=== PATIENT | female | born 1960 | race Caucasian/White ===

== ENCOUNTER 2021-11-18 05:23 | Inpatient (IN) ==
[2021-11-18] MEDS ORDERED: methylPREDNISolone 125 MG/2 ML VIAL IVP ONE (05:50)
[2021-11-18] MEDS ORDERED: Isovue-370 500 ML BOTTLE IVP ONE (06:15)
[2021-11-18 06:30] LABS: Basophils % 0.5 %; Eosinophils # 0.1 K/mcL (0.0-0.6); Eosinophils % 0.6 %; Hematocrit 41.2 % (35.3-44.9); Hemoglobin 13.7 g/dL (11.5-15.4); Immature Granulocytes % 0.4 % (0-4); Lymphocytes # 1.8 K/mcL (0.6-4.6); Lymphocytes % 21.9 %; Mean Corpuscular HGB Conc 33.3 g/dL (31.6-35.5); Mean Corpuscular Hemoglobin 26.5 pg (28.0-33.3); Mean Corpuscular Volume 79.7 fL (83.0-100.0); Mean Platelet Volume 9.8 fL (9.4-12.4); Monocytes # 0.7 K/mcL (0.0-1.3); Monocytes % 8.4 %; Neutrophils # 5.5 K/mcL (1.6-8.9); Platelet Count 220 K/mcL (140-400); Red Blood Count 5.17 M/mcL (3.82-4.97); Red Cell Distribution Width 15.9 % (11.5-14.5); Segmented Neutrophils % 68.2 %; White Blood Count 8.1 K/mcL (4.3-11.1)
[2021-11-18 06:33] LABS: Alanine Aminotransferase 7 Units/L (7-52); Albumin 3.7 g/dL (3.5-5.7); Albumin/Globulin Ratio 1.2 (1.1-2.2); Alkaline Phosphatase 102 Units/L (34-104); Aspartate Amino Transferase 12 Units/L (13-39); BUN/Creatinine Ratio 25 (6-26); Bilirubin,Total 0.3 mg/dL (0.3-1.0); Blood Urea Nitrogen 27 mg/dL (8-23); Calcium 8.9 mg/dL (8.6-10.3); Carbon Dioxide 26 mEq/L (23-29); Chloride 100 mEq/L (98-107); Globulin 3.2 g/dL (2.4-3.5); Glucose 100 mg/dL (70-105); Osmolality,Calculated 285 (280-300); Potassium 3.3 mEq/L (3.5-5.1); Sodium 135 mEq/L (136-145); Total Protein 6.9 g/dL (6.4-8.9); eGFR For African Americans > 60 (> 60); eGFR For Non-African Americans 52 (> 60)
[2021-11-18 07:03] LABS: Adenovirus Not Detected (Not Detect); Bordetella Pertussis Not Detected (Not Detect); Chlamydophila pneumoniae Not Detected (Not Detect); Coronavirus 229E Not Detected (Not Detect); Coronavirus HKU1 Not Detected (Not Detect); Coronavirus NL63 Not Detected (Not Detect); Coronavirus OC43 Not Detected (Not Detect); Human Metapneumovirus Not Detected (Not Detect); Human Rhinovirus/Enterovirus Not Detected (Not Detect); Influenza A Subtype 2009 H1 Not Detected (Not Detect); Influenza B Not Detected (Not Detect); Mycoplasma pneumoniae Not Detected (Not Detect); Parainfluenza Virus 1 Not Detected (Not Detect); Parainfluenza Virus 2 Not Detected (Not Detect); Parainfluenza Virus 3 Not Detected (Not Detect); Parainfluenza Virus 4 Not Detected (Not Detect); Respiratory Syncytial Virus Not Detected (Not Detect); SARS-CoV-2 Not Detected (Not Detect)
[2021-11-18] MEDS ORDERED: Ampicillin/Sulbactam 3,000 MG in 0.9 % Sodium Chloride Mini Bag 100 ML IVPB ONE (07:24)
[2021-11-18] MEDS: Racepinephrine Neb 0.5 ML VIAL IH ONE ×2 (08:36→08:40)
[2021-11-18] MEDS ORDERED: Acetaminophen 325 MG TABLET PO PRN (10:52)
[2021-11-18] MEDS ORDERED: Albuterol 2.5 MG/3 ML NEBULIZER IH PRN (10:52)
[2021-11-18] MEDS ORDERED: Naloxone 0.4 MG/ML INJ IVP PRN (10:52)
[2021-11-18] MEDS ORDERED: Racepinephrine Neb 0.5 ML VIAL IH PRN (10:52)
[2021-11-18] MEDS ORDERED: Acetaminophen/Aspirin/Caffeine TABLET PO PRN (11:00)
[2021-11-18] MEDS ORDERED: NON-FORMULARY MEDICATION 1 EACH EACH (Epinephrine 0.3 MG/0.3 ML Auto.Injct) IM PRN (11:00)
[2021-11-18] MEDS: Famotidine 20 MG/2 ML VIAL IVP SCH ×2 (11:48→18:46)
[2021-11-18] MEDS ORDERED: Benzocaine 20% 12 APPL GEL..GRAM. TP PRN (11:52)
[2021-11-18] MEDS: Ampicillin/Sulbactam 3,000 MG in 0.9 % Sodium Chloride Mini Bag 100 ML IVPB SCH ×2 (13:19→18:48)
[2021-11-18 13:23] LABS: INR 1.2; Prothrombin Time 13.1 Seconds (9.4-12.1)
[2021-11-18] MEDS: Ipratropium/Albuterol Neb 3 ML IH SCH ×2 (15:40→20:00)
[2021-11-18] MEDS: methylPREDNISolone 125 MG/2 ML VIAL IVP SCH (18:47)
[2021-11-18] MEDS: *HR* Heparin 5,000 UNIT/ML VIAL SQ SCH (18:48)
[2021-11-18 20:07] LABS: Bilirubin,Urine Negative (Negative); Blood,Urine Negative (Negative); Clarity,Urine Clear (Clear); Color,Urine Colorless (Yellow); Glucose,Urine (UA) Normal (Normal); Ketones,Urine Negative (Negative); Leukocyte Esterase,Urine Negative (Negative); Nitrite,Urine Negative (Negative); Protein,Urine Negative (Neg-Trace); Specific Gravity,Urine 1.023 (1.010-1.025); Urobilinogen,Urine Normal (Normal)
[2021-11-18] MEDS ORDERED: Chloraseptic Spray 177 ML BOTTLE MM PRN (21:19)
[2021-11-19] MEDS: Ampicillin/Sulbactam 3,000 MG in 0.9 % Sodium Chloride Mini Bag 100 ML IVPB SCH ×5 (01:45→23:58)
[2021-11-19 01:55] LABS: Basophils % 0.1 %; Hematocrit 38.6 % (35.3-44.9); Hemoglobin 12.7 g/dL (11.5-15.4); Immature Granulocytes % 0.4 % (0-4); Lymphocytes # 0.9 K/mcL (0.6-4.6); Lymphocytes % 11.6 %; Mean Corpuscular HGB Conc 32.9 g/dL (31.6-35.5); Mean Corpuscular Hemoglobin 26.5 pg (28.0-33.3); Mean Corpuscular Volume 80.4 fL (83.0-100.0); Mean Platelet Volume 9.9 fL (9.4-12.4); Monocytes # 0.3 K/mcL (0.0-1.3); Monocytes % 4.1 %; Neutrophils # 6.8 K/mcL (1.6-8.9); Platelet Count 202 K/mcL (140-400); Red Cell Distribution Width 15.8 % (11.5-14.5); Segmented Neutrophils % 83.8 %; White Blood Count 8.1 K/mcL (4.3-11.1)
[2021-11-19 04:07] LABS: Alanine Aminotransferase 6 Units/L (7-52); Albumin 3.6 g/dL (3.5-5.7); Albumin/Globulin Ratio 1.2 (1.1-2.2); Alkaline Phosphatase 68 Units/L (34-104); Aspartate Amino Transferase 12 Units/L (13-39); BUN/Creatinine Ratio 21 (6-26); Bilirubin,Direct 0.1 mg/dL (0.0-0.2); Bilirubin,Indirect 0.4 mg/dL (0.0-1.0); Bilirubin,Total 0.5 mg/dL (0.3-1.0); Blood Urea Nitrogen 17 mg/dL (8-23); Carbon Dioxide 26 mEq/L (23-29); Chloride 101 mEq/L (98-107); Globulin 3.1 g/dL (2.4-3.5); Glucose 120 mg/dL (70-105); Magnesium 1.9 mg/dL (1.6-2.6); Osmolality,Calculated 285 (280-300); Phosphorous 3.2 mg/dL (2.7-4.5); Potassium 3.6 mEq/L (3.5-5.1); Sodium 136 mEq/L (136-145); Total Protein 6.7 g/dL (6.4-8.9); eGFR For African Americans > 60 (> 60); eGFR For Non-African Americans > 60 (> 60)
[2021-11-19] MEDS: Ipratropium/Albuterol Neb 3 ML IH SCH ×4 (04:41→22:19)
[2021-11-19] MEDS: methylPREDNISolone 125 MG/2 ML VIAL IVP SCH ×2 (06:04→17:48)
[2021-11-19] MEDS: *HR* Heparin 5,000 UNIT/ML VIAL SQ SCH ×2 (06:05→17:48)
[2021-11-19] MEDS: Famotidine 20 MG/2 ML VIAL IVP SCH ×2 (06:06→17:48)
[2021-11-19] MEDS ORDERED: Racepinephrine Neb 0.5 ML VIAL IH PRN (10:59)
[2021-11-19] MEDS ORDERED: Chloraseptic Spray 177 ML BOTTLE MM PRN (10:59)
[2021-11-19] MEDS ORDERED: Acetaminophen 325 MG TABLET PO PRN (10:59)
[2021-11-19] MEDS ORDERED: Naloxone 0.4 MG/ML INJ IVP PRN (10:59)
[2021-11-19] MEDS ORDERED: Benzocaine 20% 12 APPL GEL..GRAM. TP PRN (10:59)
[2021-11-19] MEDS ORDERED: Acetaminophen/Aspirin/Caffeine TABLET PO PRN (10:59)
[2021-11-19] MEDS ORDERED: Albuterol 2.5 MG/3 ML NEBULIZER IH PRN (10:59)
[2021-11-20] MEDS: Ipratropium/Albuterol Neb 3 ML IH SCH ×3 (03:51→10:46)
[2021-11-20] MEDS: Ampicillin/Sulbactam 3,000 MG in 0.9 % Sodium Chloride Mini Bag 100 ML IVPB SCH ×4 (05:48→23:24)
[2021-11-20] MEDS: methylPREDNISolone 125 MG/2 ML VIAL IVP SCH ×2 (05:49→17:10)
[2021-11-20] MEDS: *HR* Heparin 5,000 UNIT/ML VIAL SQ SCH ×2 (05:50→17:10)
[2021-11-20] MEDS: Famotidine 20 MG/2 ML VIAL IVP SCH (05:51)
[2021-11-20 07:09] LABS: Basophils % 0.1 %; Hematocrit 38.4 % (35.3-44.9); Hemoglobin 12.7 g/dL (11.5-15.4); Immature Granulocytes % 1.6 % (0-4); Lymphocytes # 1.4 K/mcL (0.6-4.6); Lymphocytes % 16.8 %; Mean Corpuscular HGB Conc 33.1 g/dL (31.6-35.5); Mean Corpuscular Hemoglobin 26.8 pg (28.0-33.3); Mean Platelet Volume 9.9 fL (9.4-12.4); Monocytes # 0.5 K/mcL (0.0-1.3); Monocytes % 5.9 %; Neutrophils # 6.2 K/mcL (1.6-8.9); Platelet Count 198 K/mcL (140-400); Red Blood Count 4.74 M/mcL (3.82-4.97); Red Cell Distribution Width 15.8 % (11.5-14.5); Segmented Neutrophils % 75.6 %; White Blood Count 8.2 K/mcL (4.3-11.1)
[2021-11-20 07:26] LABS: BUN/Creatinine Ratio 19 (6-26); Blood Urea Nitrogen 20 mg/dL (8-23); Calcium 8.5 mg/dL (8.6-10.3); Carbon Dioxide 28 mEq/L (23-29); Chloride 102 mEq/L (98-107); Glucose 104 mg/dL (70-105); Osmolality,Calculated 291 (280-300); Phosphorous 3.6 mg/dL (2.7-4.5); Potassium 3.7 mEq/L (3.5-5.1); Sodium 139 mEq/L (136-145); eGFR For African Americans > 60 (> 60); eGFR For Non-African Americans 53 (> 60)
[2021-11-20] MEDS ORDERED: Ipratropium/Albuterol Neb 3 ML IH PRN (15:54)
[2021-11-20] MEDS: Loratadine 10 MG TABLET PO SCH (20:10)
[2021-11-20] MEDS: Famotidine 20 MG TABLET PO SCH (20:10)
[2021-11-20] MEDS ORDERED: Loratadine 10 MG TABLET PO SCH (21:00)
[2021-11-21 04:10] LABS: Basophils % 0.2 %; Hematocrit 35.9 % (35.3-44.9); Hemoglobin 11.9 g/dL (11.5-15.4); Immature Granulocytes % 1.8 % (0-4); Lymphocytes # 1.4 K/mcL (0.6-4.6); Lymphocytes % 15.4 %; Mean Corpuscular HGB Conc 33.1 g/dL (31.6-35.5); Mean Corpuscular Hemoglobin 26.9 pg (28.0-33.3); Monocytes # 0.6 K/mcL (0.0-1.3); Monocytes % 6.1 %; Neutrophils # 7.2 K/mcL (1.6-8.9); Platelet Count 197 K/mcL (140-400); Red Blood Count 4.43 M/mcL (3.82-4.97); Segmented Neutrophils % 76.5 %; White Blood Count 9.4 K/mcL (4.3-11.1)
[2021-11-21 04:27] LABS: Calcium 8.4 mg/dL (8.6-10.3); Magnesium 2.1 mg/dL (1.6-2.6); Phosphorous 3.9 mg/dL (2.7-4.5); Potassium 3.8 mEq/L (3.5-5.1)
[2021-11-21] MEDS: *HR* Heparin 5,000 UNIT/ML VIAL SQ SCH (05:08)
[2021-11-21] MEDS: methylPREDNISolone 125 MG/2 ML VIAL IVP SCH (05:09)
[2021-11-21] MEDS: Ampicillin/Sulbactam 3,000 MG in 0.9 % Sodium Chloride Mini Bag 100 ML IVPB SCH (05:10)
[2021-11-21] MEDS: Loratadine 10 MG TABLET PO SCH (08:31)
[2021-11-21] MEDS: Famotidine 20 MG TABLET PO SCH (08:31)
[2021-11-21] MEDS ORDERED: hydrALAZINE 25 MG TABLET PO SCH (09:00)
[2021-11-21] MEDS ORDERED: carvediloL 6.25 MG TABLET PO SCH (09:00)
[2021-11-21 10:23] VITALS: BP 130/79; PULSE 64; TEMP 97.9; O2SAT 94
[2021-11-21 10:48] LABS: ANA IgG by ELISA DETECTED (None Detected)
[2021-11-22 07:15] LABS: ANA HEp-2 IgG IFA DETECTED (<1:80); Anti Nuclear Ab Pattern HOMOGENEOUS
[2021-11-23 19:44] LABS: ANCA IFA Titer >1:1280 (<1:20)
[2021-11-24 10:17] LABS: ANCA IFA Pattern P-ANCA (None Detected); Serine Protease-3 Antibody 253 AU/mL (0-19)
== END 2021-11-21 16:13 | disposition home or self-care (01) | DRG 916 ==
LOC: EMEROOARM 05:23 → ICNU 09:15 → SUATTDRO 09:15 → ICNU 09:17 → 2NNU 11-19 14:54 → 3BNU 11-21 09:56
PROVIDERS: ADMIT Pediatrics; ATTEND General Practice